=== PATIENT | female | born 1950 | race Caucasian/White ===

== ENCOUNTER 2016-03-07 19:11 | Emergency (ER) | payer MEDICARE, MEDICAID ==
[~2016-03-07] VITALS: Ht 157.5 cm; Wt 85.0 kg
[~2016-03-07 19:11] MED LIST: ACET325T33 PO; ADV10050 INH; CARI350T29 PO; DIL1I PO; DOCU-144 PO; DOCU100C26 PO; DULO30CA45 PO; IMO2 PO; IPRA3AMP HHN; KLO5 PO; LAMO25TA PO; LEVE250T66 PO; LEVO150T75 PO; LORA-441 PO; PANT40TA4 PO; POLY17PO6 PO; QUET25TA33 PO; TML25OP5 BOTH EYES; UDPHE PO
[2016-03-07 19:19] VITALS: Ht 157.5 cm; Wt 85.0 kg
[2016-03-07] MEDS ORDERED: [UNRECOGNIZED DRUG - CODE] IJ (20:11)
[2016-03-07] MEDS ORDERED: HYDR8TAB PO (20:13)
[2016-03-07] MEDS ORDERED: CLON0.5T4 PO (20:13)
[2016-03-07] MEDS ORDERED: DUR75P TD (20:14)
[2016-03-07] MEDS ORDERED: LAMO25TA PO (20:15)
[2016-03-07] MEDS ORDERED: ADV10050 INHALATION (20:17)
[2016-03-07] MEDS ORDERED: LEVE250T5 PO (20:18)
[2016-03-07] MEDS ORDERED: DULO60CA59 PO (20:18)
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
[2016-03-07 20:58] VITALS: BP 107/83; PULSE 73; RESP 18; TEMP 97.8
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
== END 2016-03-07 21:26 | disposition home or self-care (01) ==
LOC: E/R 19:11
DX: S19.9XXA Unspecified injury of neck, initial encounter (principal); J44.9 Chronic obstructive pulmonary disease, unspecified; E03.9 Hypothyroidism, unspecified; R51 Headache; V49.59XA Passenger injured in collision with other motor vehicles in traffic accident, initial encounter
CPT/HCPCS: 70450; 72125

== ENCOUNTER → 2017-01-03 | Outpatient (CLI) | payer MEDICARE, OTHER ==
[~2017-01-03] MED LIST changes: -ACET325T33 PO; -ADV10050 INH; +ADV10050 INHALATION; -CARI350T29 PO; +CLON0.5T4 PO; -DIL1I PO; -DOCU-144 PO; -DOCU100C26 PO; -DULO30CA45 PO; +DULO60CA59 PO; +DUR75P TD; +HYDR8TAB PO; -IMO2 PO; -IPRA3AMP HHN; -KLO5 PO; +LEVE250T5 PO; -LEVE250T66 PO; -LEVO150T75 PO; -LORA-441 PO; -POLY17PO6 PO; -QUET25TA33 PO; +SYN15 PO; +[UNRECOGNIZED DRUG - CODE] IJ
--- NOTE | 2017-01-03 17:27 | RADRPT ---
PROCEDURE: Video-fluoroscopy swallowing study. CLINICAL INDICATION: Dysphagia. TECHNIQUE: Fluoroscopic guided video swallowing study was done in conjunction with the speech ther apist. The study was confined to the oral, pharyngeal, and cervical phases of the swallowing mechani sm. 2.9 minutes of fluoroscopy time was used. 10 series of images were obtained. COMPARISON: No prior study is available for comparison. FINDINGS: There is no evidence of aspiration during the exam. IMPRESSION: 1. No aspiration during swallowing. 2. Please refer to the speech therapist's recommendations for future feedings. RPTAT: QQ .Christopher Livingston MD, MD Date Time Electronically viewed and signed by .Christopher Livingston MD, on 01/03/2017 17:27 .R/
== END | disposition home or self-care (01) ==
LOC: RAD 11:53
PROVIDERS: ATTEND Family Medicine
DX: R05 Cough (principal)
CPT/HCPCS: 74230; 92611; G8996; G8997; G8998

== ENCOUNTER 2017-11-26 15:47 | Inpatient (IN) | END 2017-11-28 17:31 | DRG 101 ==